=== PATIENT | female | born 1990 | race Caucasian/White ===

== ENCOUNTER 2021-01-11 19:13 | Emergency (ER) | payer MEDICAID ==
[~2021-01-11] VITALS: Ht 177.8 cm; Wt 99.8 kg
[2021-01-11 19:14] VITALS: BP 172/108
--- NOTE | 2021-01-11 19:21 | NUR ---
30 Y/O F BIB PD FOR MEDICAL CLEARANCE. PT IS STATING SHE IS AT THIS TIME. UNABLE TO RECALL LMP. PT STATES SHE IS UNABLE TO GIVE URINE AT THIS TIME, WATER WAS GIVEN, DENIES ANY PAIN. DENIES N/V/D; SKIN IS FLUSHED/WARM/DRY; AAOX4 WITH EVEN AND STEADY GAIT; LUNGS CLEAR BL; HR EVEN AND TACHY; PT DENIES ANY FEVER, CP, SOB, OR COUGH AT THIS TIME; PATIENT STATES PAIN OF 0/10 AT THIS TIME; VSS; PATIENT POSITIONED FOR COMFORT; HOB ELEVATED; BEDRAILS UP X2; BED DOWN. ER MD MADE AWARE OF PT STATUS. PMH: DENIES MED: DENIES NKA
--- NOTE | 2021-01-11 20:03 | NUR ---
ATTEMPTED TO OBTAIN URINE SPECIMEN, PT STATED "I AM REFUSING ALL MEDICAL TREATMENT. " PARTH FUNK MADE AWARE.
--- NOTE | 2021-01-11 20:15 | NUR ---
PATIENT BIB [employer]. PATIENT EXAMINED BY BLESSING ALBA. PATIENT MEDICALLY CLEARED AND RELEASED IN CUSTODY IN STABLE CONDITION. ORIGINAL PRE-BOOK FORM GIVEN TO OFFICER ZHANE VELASQUEZ # [id number].
== END 2021-01-11 20:15 ==
LOC: MED 19:13
DX: Z02.89 Encounter for other administrative examinations (principal)
CPT/HCPCS: 99283